=== PATIENT | female | born 1995 | race Caucasian/White ===

== ENCOUNTER 2016-11-27 00:36 | Observation (INO) ==
[2016-11-27] MEDS ORDERED: Rho Immune Globulin 1,500 UNIT SYRINGE IM ONE (03:25)
--- NOTE | 2016-12-04 08:26 | OB/GYN Progress Note ---
Date of Encounter: 11/27/16 Time of Encounter: 01:30 - Assessment and Plan (1) 22 weeks gestation of Status: Acute care with Dr. Guillen, follow-up with Dr. Guillen for further evaluation, her labor warning signs given (2) Rh negative status during in second trimester Status: Acute Positive Kleihauer-Betke (3) Encounter for prophylactic administration of RhoGAM Status: Acute Need for RhoGAM determined and RhoGAM given Subjective - Subjective Principal diagnosis: 22 wk IUP Interval history: pt at 22 wks EGA who fell twice, slipping on mud. + FM, pink d/c x 1. +FM, no cramping Antepartum ROS: movement normal, no loss of fluid, no contractions Objective - Exam FHR: auscultation normal FHR comments: no contraactions Abdomen: Present: normal appearance (per RN), soft, gravid - Labs Labs: Abnormal lab results Volume Blood 50 mL FMH (0-0) H 11/27/16 01:41 - Allied health notes Allied health notes reviewed: nursing
== END 2016-11-27 04:10 | disposition home or self-care (01) ==
LOC: 1NENULAB
PROVIDERS: ADMIT Obstetrics & Gynecology; ATTEND Obstetrics & Gynecology

== ENCOUNTER 2017-03-21 17:45 | Observation (INO) ==
--- NOTE | 2017-03-21 18:18 | OB/GYN Progress Note ---
Date of Encounter: 03/21/17 Time of Encounter: 18:17 - Assessment and Plan (1) 38 weeks gestation of Status: Acute Pt receives appropriate care with Dr. Guillen However has missed last two scheduled outpatient visits F/u appointment scheduled with Dr. Guillen for 03/26/17 (2) induced hypertension Status: Acute BP's on admission: [139/78, 133/72] PIH labs - protein/creatinine ration 0.24. AST/ALT WNL and reassuring of normal liver function Nausea and throbbing sensation with headache, suggestive of migraine-type headache Pt educated to monitor for any progression in visual disturbances, other than those associated with headache Discussed with Dr. Vargas and LOLA Cunningham. Dr. Vargas reviewed labs. Per Octavio, pt safe for discharge home, with labor precautions, when to return to triage or call provider. Pt verbalizes understanding. Qualifiers: Trimester: third trimester Qualified Code(s): O13.3 - Gestational [ -induced] hypertension without significant proteinuria, third trimester (3) Non-stress test reactive on surveillance Status: Acute Baseline 135 bpm Moderate variability Heart tracing reassuring Subjective - Subjective Principal diagnosis: PIH Evaluatioin Interval history: Ms. Daigle is a 22 year old F at 38 weeks and 4 days who presents to labor and delivery from office for PIH evaluation. Patient had elevated BP of 150/92 in office.Patient denies leaking of fluid or vaginal bleeding. Pt feels that movement has not been as active as usual. This past week she has had a "throbbing" sensation behind eyes and intermittent, "achy" right upper quadrant abdominal pain. Additionally, reports new onset of headache localized in posterior neck side that began approximately one week ago and is accompanied with nightly emesis that resolves with rest. Pt has missed last two outpatient visits. Blood type: O Neg, Rubella: Immune, Hep. B: nonreactive, HIV: nonreactive/ T Pallidum Ab-/ GBS: Pending. Pt is HSV 1 IgG Positive. Antepartum ROS: new complaints, no loss of fluid, no vaginal bleeding, no contractions Objective - Vital Signs Vital Signs: Intake and Output 03/21/17 03/21/17 03/21/17 07:59 15:59 23:59 Other: Weight 147.1 kg Patient Weight 03/21/17 23:59 Weight 147.1 kg BP: 139/78 @ 1803 BP: 133/72 @1819 Temp: 97.8 HR: 88 - Exam FHR: auscultation normal, other (Baseline 135 bpm) FHR comments: baseline 135 Auscultation: bilateral: normal Abdomen: Present: soft (obese, distrubition of silverly plaques across skin and abdomen), gravid. Absent: rigidity, tenderness Cervical dilation: SVE deferred
[2017-03-21 18:46] LABS: Bilirubin,Urine Negative (Negative); Blood,Urine Negative (Negative); Clarity,Urine Cloudy (Clear); Color,Urine Yellow (Yellow); Glucose,Urine (UA) Normal (Normal); Ketones,Urine Negative (Negative); Leukocyte Esterase,Urine Negative (Negative); Nitrite,Urine Negative (Negative); PH,Urine 6.5 pH Units (5.0-8.0); Protein,Urine Trace mg/dL (Neg-Trace); Specific Gravity,Urine 1.013 (1.010-1.025); Urobilinogen,Urine Normal (Normal)
[2017-03-21 18:50] LABS: Basophils % 0.1 %; Eosinophils # 0.2 K/mcL (0.0-0.6); Eosinophils % 1.2 %; Hematocrit 34.6 % (35.3-44.9); Hemoglobin 10.7 g/dL (11.5-15.4); Immature Granulocytes % 1.1 % (0-4); Lymphocytes # 1.9 K/mcL (0.6-4.6); Lymphocytes % 13.6 %; Mean Corpuscular HGB Conc 30.9 g/dL (31.6-35.5); Mean Corpuscular Hemoglobin 23.2 pg (28.0-33.3); Mean Corpuscular Volume 75.1 fL (83.0-100.0); Mean Platelet Volume 11.9 fL (9.4-12.4); Monocytes # 1.1 K/mcL (0.0-1.3); Monocytes % 7.6 %; Neutrophils # 10.7 K/mcL (1.6-8.9); Platelet Count 238 K/mcL (140-400); Red Blood Count 4.61 M/mcL (3.82-4.97); Segmented Neutrophils % 76.4 %
[2017-03-21 18:52] LABS: Hyaline Casts,Urine None Seen per lpf (None-Few); RBC,Urine 0-3 per hpf (0-3); WBC,Urine 0-3 per hpf (0-3)
[2017-03-21 18:54] LABS: Protein/Creatinine Ratio,Urine 0.24 mg/mg (0-0.20)
[2017-03-21 18:59] LABS: Alanine Aminotransferase 9 Units/L (0-55); Aspartate Amino Transferase 15 Units/L (5-34); BUN/Creatinine Ratio 9 (6-26); Lactate Dehydrogenase 174 Units/L (159-327); Uric Acid 4.9 mg/dL (2.6-6.0); eGFR For African Americans > 60 (> 60); eGFR For Non-African Americans > 60 (> 60)
[2017-03-21 19:00] LABS: Squamous Epithelial Cell,Urine Few per lpf (None-Few)
[2017-03-21 19:00] LABS: Blood Urea Nitrogen 5 mg/dL (7-20)
[2017-03-21 19:01] LABS: Bacteria,Urine Few per hpf (None-Few)
== END 2017-03-21 19:25 | disposition home or self-care (01) ==
LOC: 1NENULAB → MERGE 17:45
PROVIDERS: ADMIT Obstetrics & Gynecology; ATTEND Obstetrics & Gynecology

== ENCOUNTER 2017-04-01 21:33 | Inpatient (IN) ==
--- NOTE | 2017-04-01 20:54 | OB/GYN History & Physical ---
Date of Encounter: 04/01/17 Time of Encounter: 20:50 Assessment and Plan (1) 40 weeks gestation of Current visit: Yes Status: Acute Possible Induction as per Dr. De Los Santos (2) Obesity, morbid (more than 100 lbs over ideal weight or BMI > 40) Current visit: Yes Status: Chronic History of Present Illness Chief complaint: Interested in Induction HPI: Ms. Davila is a 22 year old female, , 40.1 GA, presents to L&D with 6/10 back pain and interest in labor induction. Patient confirms movement, denies vaginal bleeding, loss of fluid, swelling, or abdominal pain. +diffuse headache that comes and goes, but no ongoing elevated blood pressures during . Past urinalysis negative for protein. Labs: Postive: GBS; HSV 1 Negative: HIV, Hep B/C, syphilis, chlamydia, gonorrhea Immune: VZV, Rubella Past Med Surg Social Fam HX - Past Medical History Medical history: no medical history Psychiatric history: anxiety, bipolar, depression - Past Surgical History Surgical History: cholecystectomy - Social History Smoking Status: Former smoker Smokeless Tobacco Status: No Alcohol use: none Drug use: none - Family History Mother Living Status: Still Living Hx Family Cardiac Disorders: No Hx Family Respiratory Disorders: No Hx Family Cancer: No Hx Family GI Disorders: No Hx Family Endocrine Disorder: No Hx Family Neuromuscular Disorders: No Hx Family Neurologic Disorders: No Hx Family HEENT Disorders: No Hx Family Autoimmune Disorders: No Obstetrical History - Pregnancies : 2 Medications and Allergies Xanax 1 mg PO TID 09/01/15 [History] BuPROPion [Wellbutrin] 1 tab PO DAILY 03/21/17 [History] Vistaril 50 mg PO DAILY 03/21/17 [History] Allergies amphetamine [From Adderall] Allergy (Verified 03/14/16 01:21) Rash dextroamphetamine [From Adderall] Allergy (Verified 03/14/16 01:21) Rash codeine Adverse Reaction (Verified 03/14/16 01:21) Nausea tramadol [From Ultram] Adverse Reaction (Verified 03/14/16 01:21) Nausea Review of System OB - Genitourinary Genitourinary: amenorrhea - Menstruation Menstruation: amenorrhea Exam - Vital Signs Vital signs: Initial Vital Signs Temp Pulse Resp BP 97.7 F 99 15 135/74 04/01/17 20:01 04/01/17 20:01 04/01/17 20:01 04/01/17 20:01 - Constitutional Constitutional: well developed, well nourished, no acute distress, obese - HEENT HEENT: Normocephaly, Mucus Membranes Moist - Neck Neck exam: full ROM - Lungs Respiratory exam: CTAB - Cardiovascular Cardiovascular exam: +S1, +S2 - Cervix Dilation: 1 Station: -2 Results All other labs normal. - VTE Reasons for not Prescribing Prophylaxis: Treatment not Indicated - Low risk for VTE
[~2017-04-01 21:33] MED LIST: Famotidine 20 MG/2 ML VIAL IVP PRN; Metoclopramide 10 MG/2 ML VIAL IVP PRN; Naloxone 0.4 MG/ML INJ IVP PRN
[2017-04-01] MEDS ORDERED: miSOPROStol 100 MCG TABLET PO STA (21:35)
[2017-04-01 21:46] LABS: Basophils % 0.2 %; Eosinophils # 0.1 K/mcL (0.0-0.6); Eosinophils % 0.8 %; Hematocrit 37.1 % (35.3-44.9); Hemoglobin 11.2 g/dL (11.5-15.4); Immature Granulocytes % 1.1 % (0-4); Lymphocytes # 1.9 K/mcL (0.6-4.6); Lymphocytes % 12.1 %; Mean Corpuscular HGB Conc 30.2 g/dL (31.6-35.5); Mean Platelet Volume 11.5 fL (9.4-12.4); Monocytes # 0.9 K/mcL (0.0-1.3); Monocytes % 5.8 %; Neutrophils # 12.3 K/mcL (1.6-8.9); Platelet Count 247 K/mcL (140-400); Red Blood Count 4.88 M/mcL (3.82-4.97); Red Cell Distribution Width 16.8 % (11.5-14.5)
[2017-04-01] MEDS ORDERED: Penicillin G Potassium 5,000,000 UNIT in D5% in Water (Mini-Bag+) 100 ML IVPB ONE (22:54)
[2017-04-01] MEDS: Ringers Solution, Lactated 1,000 ML IVC SCH (23:10)
[2017-04-02] MEDS: Ondansetron 4 MG/2 ML VIAL IVP PRN ×2 (00:38→17:52)
--- NOTE | 2017-04-02 02:18 | OB Labor Progress Note ---
Date of Encounter: 04/02/17 Time of Encounter: 02:16 Labor Progress Note - Subjective Subjective: Patient lying comfortably in bed, accompanied by fiance, sister, and friend. Pt reports no active contractions currently. - Cervix Cervix: 1cm, -2 station - Heart Tones Heart Tones: Reassuring heart monitoring. - Interventions Interventions: 2nd dose cytotec to be administered. - Plan Plan: Continue monitoring for progression of labor.
[2017-04-02] MEDS ORDERED: miSOPROStol 100 MCG TABLET PO STA (02:21)
[2017-04-02] MEDS: Penicillin G Potassium 2,500,000 UNIT in D5% in Water 100 ML IVPB SCH ×4 (02:47→16:16)
[2017-04-02] MEDS ORDERED: miSOPROStol 25 MCG TABLET VG SCH (08:00)
--- NOTE | 2017-04-02 08:41 | Anesthesia Evaluation PreOp ---
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: Denies Any Significant HX Other Medical History: Denies Any Significant HX Anesthesia History: No Prior Anesthetic Complications (Lap grazyna without anesthetic complication), Past Anesthesia : Yes Alcohol Use: none Drug use: none Medications and Allergies Xanax 1 mg PO TID 09/01/15 [History] BuPROPion [Wellbutrin] 1 tab PO DAILY 03/21/17 [History] Vistaril 50 mg PO DAILY 03/21/17 [History] Allergies amphetamine [From Adderall] Allergy (Verified 03/14/16 01:21) Rash dextroamphetamine [From Adderall] Allergy (Verified 03/14/16 01:21) Rash codeine Adverse Reaction (Verified 03/14/16 01:21) Nausea tramadol [From Ultram] Adverse Reaction (Verified 03/14/16 01:21) Nausea - Meds/Allergy Pre-op Review Medications Reviewed: Yes Allergies Reviewed: Yes Beta Blockers on Current Med List: No Anesthesia Results - Labs 04/01/17 21:15 Anesthesia Exam Vital Signs Temperature 97.7 F 04/01/17 20:01 Pulse Rate 99 04/01/17 20:01 Respiratory Rate 04/01/17 20:01 Blood Pressure 135/74 04/01/17 20:01 Temperature 97.7 F 04/01/17 20:01 Pulse Rate 99 04/01/17 20:01 Respiratory Rate 04/01/17 20:01 Blood Pressure 135/74 04/01/17 20:01 Height: 5'10" Weight: 147kg NPO (# of Hours): 2 Pain Scale: 0 Pain Scale Used: Numeric (1 - 10) - HEENT Pupil (Motor): Pupils equal Mallampati: II Teeth: Normal Oral Opening: Greater than 3 - DIESEL ENGINE INSPECTOR LOC: Oriented DIESEL ENGINE INSPECTOR Motor: Normal RUE, Normal LUE, Normal RLE, Normal LLE, Normal Face DIESEL ENGINE INSPECTOR Sensory: Normal: RUE, LUE, RLE, LLE, Face - Cardiac Rhythm: Regular Murmur: None JVD: No Carotid Bruit: No - Pulmonary Breath Sounds: bilateral Clear Respiratory Effort: Symmetrical Anesthesia Assess/Plan ASA Score: 3 Modified Fenton Scale for Level of Consciousness: Cooperative, oriented, and tranquil Anesthetic Plan: Regional Autologous Blood: No Monitoring Plan: Standard Monitors Recovery Plan: PACU
--- NOTE | 2017-04-02 08:44 | OB Labor Progress Note ---
Date of Encounter: 04/02/17 Time of Encounter: 08:45 Labor Progress Note - Subjective Subjective: Patient is not really feeling contractions has received 2 doses of Cytotec by mouth. Patient still not get the most favorable cervix since induction inserted been initiated we will proceed on. We did have a long discussion about if we cannot get the baby out now vaginally she is looking at a section and she is okay with that. Recommended trying a Arreola catheter along with vaginal Cytotec. - Cervix Cervix: /-3 arreola catheter placed without difficulty - Heart Tones Heart Tones: heart tones 140s reactive - [place]: No contractions noted occasional irritability - Plan Plan: We will try Arreola catheter with vaginal Cytotec once Arreola is out we will discuss augmentation with Pitocin.
[2017-04-02] MEDS ORDERED: Oxytocin 20 units/ LR 1000 mL 20 UNIT/1,000 ML BAG IVC SCH ×3 (13:15→22:44)
--- NOTE | 2017-04-02 14:39 | OB Labor Progress Note ---
Date of Encounter: 04/02/17 Time of Encounter: 14:36 Labor Progress Note - Subjective Subjective: Patient resting in bed, discussed POC with patient. Patient denies any questions or concerns. - Heart Tones Heart Tones: 115 bpm moderate variability +15x15 accels no decels noted. CAt. 1 tracing. - [place]: 4-5 min apart - Interventions Interventions: discussed POC with patient. - Plan Plan: Will start Pitocin to achieve an effective labor pattern.
[2017-04-02] MEDS ORDERED: *HR* FentaNYL (PF) 100 MCG/2 ML VIAL ONE (15:05)
[2017-04-02] MEDS ORDERED: Bupivacaine-MPF 0.25% 10 ML VIAL ONE (15:06)
[2017-04-02] MEDS ORDERED: Epidural Premix (fent/bupiv) 110 ML EP ONE (15:06)
[2017-04-02] MEDS ORDERED: Ondansetron 4 MG/2 ML VIAL IVP PRN ×3 (15:47→23:42)
[2017-04-02] MEDS ORDERED: Bupivacaine-MPF 0.25% 10 ML VIAL EP ONE (15:47)
[2017-04-02] MEDS ORDERED: *HR* FentaNYL (PF) 100 MCG/2 ML VIAL EP ONE (15:47)
[2017-04-02] MEDS ORDERED: Naloxone 0.4 MG/ML INJ IVP PRN ×3 (15:47→23:42)
[2017-04-02] MEDS ORDERED: EPHEDrine 50 MG/ML VIAL IVP PRN (15:47)
--- NOTE | 2017-04-02 15:51 | Anesthesia Procedures ---
Date of Encounter: 04/02/17 Time of Encounter: 15:08 Procedures: Anesthesia - Epidural/Spinal Patient ID/Chart reviewed: Yes Patient examined: Yes OB Eval: Gestational age: 40.2 OB Eval: : 2 OB Eval: Hx Para: 0 OB Eval: Dilated at (cm): 4 OB Eval: Contractions: Non-stressed pattern Consent Obtained: Yes Supplemental Oxygen: None/Room Air Site Prep: Aseptic Technique, Sterile prep and drape, Povidone-Iodine 1% Patient position: upright Local Anesthetic: Lidocaine 1% Amount of Local Anesthetic used: 3 Touhy Needle Gauge: 18 Touhy Needle Depth (cm): 8 Catheter Depth at Skin (cm): 15 Test Dose (1.5% Lido + Epi): Volume given (mls): 3 Test Dose Result: Negative Loading Dose: Fentanyl (mcg): 100 Loading Dose Administered: Thru Catheter Infusion Med: 0.125% Bupivacaine w/ 2 mcg/ml Fentanyl Infusion Rate (mls/hr): [address]: Tegaderm, Tape Interspace Used: L4-L5 Loss of Resistance (HERIBERTO): Yes Blood: Yes (1st pass heme, 2nd pass none) CSF: No Paresthesia: No Procedure: KIRBY placed 1st pass heme, 2nd pass none and with negative test dose. No immediate complication noted. Vitals + FHT's: 1508 BP 138/84 P 75 R 18 1545 BP 138/64 R 16 P 94 FHT 120s
[2017-04-02] MEDS ORDERED: Epidural Premix (fent/bupiv) 110 ML EP SCH (16:00)
--- NOTE | 2017-04-02 16:44 | OB Labor Progress Note ---
Date of Encounter: 04/02/17 Time of Encounter: 16:42 Labor Progress Note - Subjective Subjective: Patient resting comfortably with epidural in place. Discussed POC with patient patient denies any questions or concerns. - Cervix Cervix: 4/60/-2 - Heart Tones Heart Tones: 125 bpm moderate variability +15x15 accels no decels noted. - [place]: 2-3 min apart - Interventions Interventions: SVE, AROM moderate amount of light meconium stained fluid. IUPC and FSE placed without difficulty. Patient tolerated well. - Plan Plan: Continue labor management
--- NOTE | 2017-04-02 19:32 | OB Labor Progress Note ---
Date of Encounter: 04/02/17 Time of Encounter: 19:30 Labor Progress Note - Subjective Subjective: Patient resting comfortably with epidural in place. Patient denies any pain. - Cervix Cervix: 4.5/80/-2 - Heart Tones Heart Tones: 130 bpm moderate variability +15x15 accels no decels noted. - [place]: 2-3 min apart - Interventions Interventions: SVE, patient repositioned - Plan Plan: Continue labor management. Dr. Andrew notified of patient's progress.
[2017-04-02] MEDS: Ringers Solution, Lactated 1,000 ML IVC SCH (19:57)
[2017-04-02] MEDS ORDERED: CeFAZolin Pre 3,000 MG/100 ML 3,000 MG/100 ML BAG IVPB ONE (20:27)
[2017-04-02] MEDS ORDERED: EPHEDrine 50 MG/ML VIAL ONE (20:41)
[2017-04-02] MEDS ORDERED: *HR* Morphine Sulfate/PF 5 MG/10 ML AMPUL ONE (20:42)
[2017-04-02] MEDS ORDERED: Azithromycin 500 MG in D5% in Water 250 ML IVPB SCH (21:00)
[2017-04-02] MEDS ORDERED: *HR* Promethazine 25 MG/ML VIAL IVP PRN (21:05)
[2017-04-02] MEDS ORDERED: *HR* HYDROmorphone (PF) 1 MG/ML SYRINGE IVP PRN (21:05)
[2017-04-02] MEDS ORDERED: Ondansetron 4 MG/2 ML VIAL IVP ONE (21:05)
[2017-04-02] MEDS ORDERED: Ringers Solution, Lactated 1,000 ML IVC SCH (21:15)
--- NOTE | 2017-04-02 21:22 | Operative Note ---
Date of procedure: 04/02/17 Pre-op diagnosis: Intrauterine at 39-1/7 weeks, category 3 strip bradycardia Post-op diagnosis: same Procedure: Primary low transverse section Complications: None Anesthesia: epidural Surgeon: Antonio Andrew
--- NOTE | 2017-04-02 21:26 | OB/GYN Procedure Note ---
Section - Date of procedure: 04/02/17 Preop diagnosis: other (Intrauterine at 39-1/7 weeks, category 3 tracing bradycardia) Post-op diagnosis: same Procedure: primary low transverse Surgeon: Antonio Andrew Estimated blood loss (cc): 300 Anesthesiologist: Rajendra Paulino Advertising Editor: Poli Sherwood Anesthesia Type: Epidural section complications: none Disposition: L&D Recovery Room Specimens: Placenta, Cord blood, Cord gasses - Infant (s) Infant A Delivery Date: 04/02/17 Infant Delivery Time: 20:37 Presentation: vertex Position: ARSALAN Route of delivery: other ( section) Gender: Female Viability: Viable Pounds: 5 Ounces: 11 Gram Weight: 2.575 kg at 1 minute: 7 at 5 minutes: 9 Shoulder Dystocia: not encountered Specimens collected: cord blood Placenta: spontaneous Cord: 3 umbilical vessels - Narrative Narrative: Patient is a 22-year-old 1 para 0 at 39 and one sevenths weeks who presented to labor and delivery complaining contractions. Because she was over 39 weeks and we decided to go ahead and keep her and start induction. Patient received 2 doses of Cytotec by mouth but really did not make any cervical change the next morning patient received Sheffield catheter and vaginal Cytotec. Catheter did fall out when she was 4 cm and we were able to start Pitocin and get her an epidural. She was artificially ruptured with light meconium noted. Patient was progressing appropriately and had a bradycardic episode down into the 60s and was not returning to baseline because the patient was still only 5 cm an emergency was called. By the time that the patient back to the operating room heart tones back in the 30s and were able to use epidural to continue on with the section. Procedure: Patient was taken to the operating room where epidural anesthesia was found to be adequate. She was placed in the dorsal supine position with leftward tilt prepped and draped in usual fashion. Timeout was obtained. A Pfannenstiel incision was made carried down to the underlying tissue to the fascia was identified. Fascia was nicked in midline extended laterally with the Baird scissors. The superior and inferior edges of the fascia grasped tented up and dissected off the rectus muscles. Rectus muscles were in midline parietal peritoneum was identified tented up and entered sharply. This was extended superiorly and inferiorly with Metzenbaum scissors. Bladder blade was inserted and vesicouterine peritoneum was identified tented up and entered sharply. This was extended laterally and bladder flap was created digitally. The lower uterine segment was incised with a scalpel and extended laterally with digital manipulation. Membranes were ruptured meconium was identified infant's head was then brought out from the pelvis through the incision there was no nuchal cord. The infant was fully delivered cord discomfort and cut and was handed off to waiting pediatric team. An curtis self-retaining retractor was placed in the abdomen and the placenta was delivered spontaneously. Cord blood and cord gases were previously obtained. The uterus was then cleaned of all clots and debris and the lower uterine segment was closed using 0 Vicryl in a running locking stitch by a 2 layer closure. Good hemostasis was noted ovaries noted be normal gutters were cleaned of all clots and debris and copiously irrigated. The fascia was then closed using a #1 stratafix in a running stitch the subcutaneous tissue was closed using an 0 chromic in a running stitch and the skin was closed using a 4- 0 Vicryl in subcutaneous manner. All needles and sponge counts were correct 3 she did receive preoperative antibiotics. Patient will be continued on Keflex 500 mg daily for 7 days and Zithromax 500 mg daily for 7 days
[2017-04-02] MEDS ORDERED: 0.9 % Sodium Chloride 1,000 ML IVC SCH (22:44)
[2017-04-02] MEDS ORDERED: Sennosides 8.6 MG TABLET PO PRN (22:44)
[2017-04-02] MEDS ORDERED: Metoclopramide 10 MG/2 ML VIAL IVP PRN (22:44)
[2017-04-02] MEDS ORDERED: Simethicone 80 MG TAB.CHEW PO PRN (22:44)
[2017-04-02] MEDS ORDERED: *HR* Morphine 2 MG/ML SYRINGE IVP PRN (23:42)
[2017-04-02] MEDS ORDERED: *HR* Morphine 2 MG/ML SYRINGE ONE (23:53)
--- NOTE | 2017-04-02 23:56 | Anesthesia Evaluation Post Op ---
Date of Encounter: 04/02/17 Time of Encounter: 23:54 - Vital Signs Vital Signs: Vital Signs Temperature 97.7 F 04/01/17 20:01 Pulse Rate 99 04/01/17 20:01 Respiratory Rate 15 04/01/17 20:01 Blood Pressure 135/74 04/01/17 20:01 Temperature 97.6 F 04/02/17 23:30 Pulse Rate 86 04/02/17 23:30 Respiratory Rate 18 04/02/17 23:30 Blood Pressure 118/78 04/02/17 23:30 O2 Sat by Pulse Oximetry 98 04/02/17 23:30 - Lungs Lungs: Clear Ascult./Percussion - Airway Airway: Non-obstructed - Cardiovascular Regular Rate - Mental Status Mental Status: Alert & Oriented, Answers Appropriately - Pain Pain Scale: 0 - Nausea Vomiting Nausea Vomiting: Not Present - Hydration Hydration: Tolerates oral liquids, Sheffield catheter - Discharge PostOp Status: Transfer Patient to floor
[2017-04-03 06:25] LABS: Basophils % 0.1 %; Eosinophils % 0.2 %; Hematocrit 34.1 % (35.3-44.9); Hemoglobin 10.2 g/dL (11.5-15.4); Immature Granulocytes % 0.8 % (0-4); Lymphocytes # 1.7 K/mcL (0.6-4.6); Lymphocytes % 12.3 %; Mean Corpuscular HGB Conc 29.9 g/dL (31.6-35.5); Mean Corpuscular Hemoglobin 22.9 pg (28.0-33.3); Mean Corpuscular Volume 76.5 fL (83.0-100.0); Mean Platelet Volume 12.2 fL (9.4-12.4); Monocytes % 7.2 %; Neutrophils # 11.2 K/mcL (1.6-8.9); Platelet Count 233 K/mcL (140-400); Red Blood Count 4.46 M/mcL (3.82-4.97); Red Cell Distribution Width 16.8 % (11.5-14.5); Segmented Neutrophils % 79.4 %
[2017-04-03] MEDS: Prenatal Vit/FA 1 EACH TABLET PO SCH (07:59)
[2017-04-03] MEDS: Azithromycin 250 MG TABLET PO SCH (07:59)
[2017-04-03] MEDS: cephALEXin 500 MG CAPSULE PO SCH (08:00)
[2017-04-03] MEDS: *HR* OxyCODONE/APAP 5/325 TABLET PO PRN ×3 (08:00→20:43)
[2017-04-03] MEDS ORDERED: Metoclopramide 10 MG/2 ML VIAL IVP ONE (09:25)
--- NOTE | 2017-04-03 09:30 | OB/GYN Progress Note ---
Date of Encounter: 04/03/17 Time of Encounter: 09:27 - Assessment and Plan (1) delivery delivered Current Visit: Yes Status: Acute Pt meeting POD#1 milestones. Will treat nausea with reglan and PRN phenergan. Hold diet with clear liquids until nausea resolved. Plan for arreola out this am and await spontaneous void. Pt to ambulate in hallway this afternoon. (2) Mother currently breast-feeding Current Visit: Yes Status: Acute (3) Obesity, morbid (more than 100 lbs over ideal weight or BMI > 40) Current Visit: Yes Status: Chronic (4) induced hypertension Current Visit: No Status: Acute BP stable this am Qualifiers: Trimester: third trimester Qualified Code(s): O13.3 - Gestational [ -induced] hypertension without significant proteinuria, third trimester (5) Rh negative status during in second trimester Current Visit: No Status: Acute Subjective - Subjective Interval history: Pt reports feeling nauseated this am. She states the zofran is not helping. No other complaints. Pain well controlled. Arreola in place. Pt has not yet been OOB. Patient reports: pain well controlled, nauseated, no appetite normal Objective - Vital Signs Latest vital signs: Vital Signs Temp Pulse Resp BP Pulse Ox 04/03/17 07:40 97.7 F 72 16 104/66 96 04/03/17 04:00 97.8 F 73 18 124/53 96 04/03/17 03:30 97.8 F 71 16 110/70 97 04/03/17 01:30 97.8 F 68 18 125/78 95 04/03/17 00:20 97.7 F 79 20 132/76 96 04/02/17 23:30 97.6 F 86 18 118/78 98 04/02/17 23:00 97.8 F 92 14 138/82 98 04/02/17 22:30 97.9 F 92 16 120/74 96 Intake and Output 04/02/17 04/03/17 04/03/17 23:59 07:59 15:59 Intake Total 100 / 100 400 / 400 Output Total 800 / 800 Balance 100 / 100 -400 / -400 Intake: IV Fluids 100 / 100 Pfizerpen 2,500,000 UNIT 100 / 100 In Dextrose 5% 100 ML @ 200 mls/hr IVPB Q4HR [facility] Rx#:[id number] Oral 400 / 400 Output: Emesis 200 / 200 Catheter 600 / 600 - Exam Lungs: bilateral: normal Chest: Normal S1, Normal S2 Extremities: Present: normal (SCD's in place) Abdomen: Present: soft, gravid Incision: Present: dressed (MILLA dry and intact) Uterus: Present: firm - Labs Labs: Laboratory Results - last 24 hr 04/03/17 05:52 WBC 14.1 H RBC 4.46 Hgb 10.2 L Hct 34.1 L MCV 76.5 L MCH 22.9 L MCHC 29.9 L RDW 16.8 H Plt Count 233 MPV 12.2 Immature Gran % 0.8 Seg Neutrophils % 79.4 Lymphocytes % 12.3 Monocytes % 7.2 Eosinophils % 0.2 Basophils % 0.1 Neutrophils # 11.2 H Lymphocytes # 1.7 Monocytes # 1.0 Eosinophils # 0.0 Basophils # 0.0
--- NOTE | 2017-04-03 13:53 | Discharge Summary ---
Date of Encounter: 04/03/17 Time of Encounter: 13:49 - Discharge Diagnosis (1) Obesity, morbid (more than 100 lbs over ideal weight or BMI > 40) Status: Chronic (2) delivery delivered Priority: Primary Status: Acute Comments: Meeting all postop milestones (3) Mother currently breast-feeding Priority: Secondary Status: Acute (4) induced hypertension Priority: Secondary Status: Acute Comments: BP's well controlled Qualifiers: Trimester: third trimester Qualified Code(s): O13.3 - Gestational [ -induced] hypertension without significant proteinuria, third trimester - Discharge Medications Home Medications: Xanax 1 mg PO TID 09/01/15 [History] BuPROPion [Wellbutrin] 1 tab PO DAILY 03/21/17 [History] Vistaril 50 mg PO DAILY 03/21/17 [History] Allergies/Adverse Reactions: Allergies amphetamine [From Adderall] Allergy (Verified 03/14/16 01:21) Rash dextroamphetamine [From Adderall] Allergy (Verified 03/14/16 01:21) Rash codeine Adverse Reaction (Verified 03/14/16 01:21) Nausea tramadol [From Ultram] Adverse Reaction (Verified 03/14/16 01:21) Nausea Data Procedures and tests throughout hospitalization: Laboratory Tests 04/01/17 04/02/17 04/03/17 21:15 22:12 05:52 WBC 15.4 H 14.1 H RBC 4.88 4.46 Hgb 11.2 L 10.2 L Hct 37.1 34.1 L MCV 76.0 L 76.5 L MCH 23.0 L 22.9 L MCHC 30.2 L 29.9 L RDW 16.8 H 16.8 H Plt Count 247 233 MPV 11.5 12.2 Immature Gran % 1.1 0.8 Seg Neutrophils % 80.0 79.4 Lymphocytes % 12.1 12.3 Monocytes % 5.8 7.2 Eosinophils % 0.8 0.2 Basophils % 0.2 0.1 Neutrophils # 12.3 H 11.2 H Lymphocytes # 1.9 1.7 Monocytes # 0.9 1.0 Eosinophils # 0.1 0.0 Basophils # 0.0 0.0 Screen NEGATIVE Baby's Blood Type O RH POSITIVE Mother's Blood Type O RH NEGATIVE Rhogam Indicated YES Rhogam Req for Mother 1 Labs on day of discharge: Labs from last 24 hours 04/03/17 04/02/17 05:52 22:12 WBC 14.1 H RBC 4.46 Hgb 10.2 L Hct 34.1 L MCV 76.5 L MCH 22.9 L MCHC 29.9 L RDW 16.8 H Plt Count 233 MPV 12.2 Immature Gran % 0.8 Seg Neutrophils % 79.4 Lymphocytes % 12.3 Monocytes % 7.2 Eosinophils % 0.2 Basophils % 0.1 Neutrophils # 11.2 H Lymphocytes # 1.7 Monocytes # 1.0 Eosinophils # 0.0 Basophils # 0.0 Screen NEGATIVE Baby's Blood Type O RH POSITIVE Mother's Blood Type O RH NEGATIVE Rhogam Indicated YES Rhogam Req for Mother 1 Date of admission: 04/01/17 21:33 Primary care physician: PCP NONE - Patient Status Disposition: Home, Self-Care Condition: Good Overall status at discharge: patient is progressing back to baseline - Discharge Instructions Follow Up With: NONE,PCP [Primary Care Provider] - - Diet and Activity Activity: increase activity as tolerated Diet: regular diet Hospital Course Reason for admission: active labor Delivery: section Episiotomy: none Laceration: none Other procedures: none complications: none Discharge diagnosis: IUP at term delivered [place] baby: female Hospital course: - Date of procedure: 04/02/17 Preop diagnosis: other (Intrauterine at 39-1/7 weeks, category 3 tracing bradycardia) Post-op diagnosis: same Procedure: primary low transverse Surgeon: Antonio Andrew Estimated blood loss (cc): 300 Anesthesiologist: Rajendra Paulino Tooth Inspector: Poli Sherwood Anesthesia Type: Epidural section complications: none Disposition: L&D Recovery Room Specimens: Placenta, Cord blood, Cord gasses - Infant (s) Infant A Delivery Date: 04/02/17 Delivery Time: 20:37 Presentation: vertex Position: ARSALAN Route of delivery: other ( section) Gender: Female Viability: Viable Pounds: 5 Ounces: 11 Gram Weight: 2.575 kg at 1 minute: 7 at 5 minutes: 9 Shoulder Dystocia: not encountered Specimens collected: cord blood Placenta: spontaneous Cord: 3 umbilical vessels Time Attestation: Total time spent providing and/or coordinating discharge services: - VTE Reasons for not Prescribing Prophylaxis: Treatment not Indicated - Low risk for VTE Documentation of Mechanical Device: Intermittent pneumatic compression device Exam - Constitutional Vitals: Temp Pulse Resp BP Pulse Ox 98 F 71 16 120/77 99 04/03/17 11:32 04/03/17 11:32 04/03/17 11:32 04/03/17 11:32 04/03/17 11:32
[2017-04-03] MEDS: Ibuprofen 600 MG TABLET PO PRN ×2 (15:08→23:37)
[2017-04-03] MEDS ORDERED: Rho Immune Globulin 1,500 UNIT SYRINGE IM ONE (16:30)
[2017-04-04] MEDS: *HR* OxyCODONE/APAP 5/325 TABLET PO PRN ×5 (02:48→22:49)
[2017-04-04] MEDS: Ibuprofen 600 MG TABLET PO PRN ×3 (06:49→22:48)
[2017-04-04] MEDS: cephALEXin 500 MG CAPSULE PO SCH (07:44)
[2017-04-04] MEDS: Prenatal Vit/FA 1 EACH TABLET PO SCH (07:44)
[2017-04-04] MEDS: Azithromycin 250 MG TABLET PO SCH (07:45)
--- NOTE | 2017-04-04 08:51 | OB/GYN Progress Note ---
Date of Encounter: 04/04/17 Time of Encounter: 08:42 - Assessment and Plan (1) Anemia, Current Visit: Yes Status: Acute Plan for iron PP (2) delivery delivered Current Visit: Yes Status: Acute Pt meeting all milestones, tolerating regular diet, pain managed on PO pain medication. Pt may DC today if desires. (3) Obesity, morbid (more than 100 lbs over ideal weight or BMI > 40) Current Visit: Yes Status: Chronic (4) Rh negative status during in second trimester Current Visit: No Status: Acute Subjective - Subjective Patient reports: appetite normal, voiding normally, pain well controlled, ambulating normally : doing well Objective - Vital Signs Latest vital signs: Vital Signs Temp Pulse Resp BP Pulse Ox 04/03/17 19:28 97.8 F 80 16 129/84 100 04/03/17 16:25 98.7 F 78 16 125/74 96 04/03/17 11:32 98 F 71 16 120/77 99 Intake and Output 04/03/17 04/04/17 04/04/17 23:59 07:59 15:59 Intake Total 1200 / 1200 500 / 500 Output Total 350 / 350 600 / 600 Balance 850 / 850 -100 / -100 Intake: IV Fluids 600 / 600 Pitocin 20 unit In 1,000 600 / 600 ml @ 125 mls/hr IVC .Q8H ALVAREZ Rx#:[id number] Oral 600 / 600 500 / 500 Output: Urine 350 / 350 600 / 600 Other: Meal Dinner Percent of Meal Consumed 100% # Voids 1 - Exam Lungs: bilateral: normal Chest: Normal S1, Normal S2 Extremities: Present: normal Abdomen: Present: normal appearance Incision: Present: dressed Uterus: Present: normal - Labs Labs: Laboratory Results - last 24 hr 04/02/17 22:12 Screen NEGATIVE Baby's Blood Type O RH POSITIVE Mother's Blood Type O RH NEGATIVE Rhogam Indicated YES Rhogam Req for Mother 1
[2017-04-04] MEDS ORDERED: Lanolin 7 G OINT...G. TP PRN (11:50)
[2017-04-05] MEDS: *HR* OxyCODONE/APAP 5/325 TABLET PO PRN ×3 (04:18→15:47)
[2017-04-05] MEDS: Prenatal Vit/FA 1 EACH TABLET PO SCH (07:51)
[2017-04-05] MEDS: cephALEXin 500 MG CAPSULE PO SCH (07:51)
[2017-04-05] MEDS: Azithromycin 250 MG TABLET PO SCH (07:51)
[2017-04-05] MEDS: Ibuprofen 600 MG TABLET PO PRN ×2 (07:55→15:48)
[2017-04-05 08:23] VITALS: BP 136/88
--- NOTE | 2017-04-05 08:32 | Discharge Summary ---
Date of Encounter: 04/05/17 Time of Encounter: 08:26 - Discharge Diagnosis (1) Status post primary low transverse section Priority: Primary Status: Acute Comments: Continue routine and postop care discharge home today follow up with Dr. Andrew in 2 weeks for incision check follow up with Dr. Guillen in 4-6 weeks - Discharge Medications Prescriptions: OxyCODONE/APAP 5/325 [Percocet 5/325 MG] 1 each PO Q4HR PRN #30 tab PRN Reason: Moderate pain 4-6 Ibuprofen [Motrin] 600 mg PO Q6HR PRN #60 tab PRN Reason: Cramping Azithromycin [Zithromax] 500 mg PO DAILY #8 tab cephALEXin [Keflex] 500 mg PO DAILY #4 Docusate [Colace] 100 mg PO BID #60 Home Medications: Xanax 1 mg PO TID 09/01/15 [History] BuPROPion [Wellbutrin] 1 tab PO DAILY 03/21/17 [History] Azithromycin [Zithromax] 500 mg PO DAILY #8 tab 04/05/17 [Rx] Docusate [Colace] 100 mg PO BID #60 04/05/17 [Rx] Ibuprofen [Motrin] 600 mg PO Q6HR PRN #60 tab 04/05/17 [Rx] Lanolin [Lansinoh] 1 appl TP TID PRN 04/05/17 [Rx] Mupirocin [Bactroban Oint] 1 appl TP BID 04/05/17 [Rx] OxyCODONE/APAP 5/325 [Percocet 5/325 MG] 1 each PO Q4HR PRN #30 tab 04/05/17 [Rx ] Vit/FA 1 each PO DAILY tab 04/05/17 [Rx] cephALEXin [Keflex] 500 mg PO DAILY #4 04/05/17 [Rx] Allergies/Adverse Reactions: Allergies amphetamine [From Adderall] Allergy (Verified 03/14/16 01:21) Rash dextroamphetamine [From Adderall] Allergy (Verified 03/14/16 01:21) Rash codeine Adverse Reaction (Verified 03/14/16 01:21) Nausea tramadol [From Ultram] Adverse Reaction (Verified 03/14/16 01:21) Nausea Data Procedures and tests throughout hospitalization: Laboratory Tests 04/01/17 04/02/1717 21:15 22:12 05:52 WBC 15.4 H 14.1 H RBC 4.88 4.46 Hgb 11.2 L 10.2 L Hct 37.1 34.1 L MCV 76.0 L 76.5 L MCH 23.0 L 22.9 L MCHC 30.2 L 29.9 L RDW 16.8 H 16.8 H Plt Count 247 233 MPV 11.5 12.2 Immature Gran % 1.1 0.8 Seg Neutrophils % 80.0 79.4 Lymphocytes % 12.1 12.3 Monocytes % 5.8 7.2 Eosinophils % 0.8 0.2 Basophils % 0.2 0.1 Neutrophils # 12.3 H 11.2 H Lymphocytes # 1.9 1.7 Monocytes # 0.9 1.0 Eosinophils # 0.1 0.0 Basophils # 0.0 0.0 Screen NEGATIVE Baby's Blood Type O RH POSITIVE Mother's Blood Type O RH NEGATIVE Rhogam Indicated YES Rhogam Req for Mother 1 Date of admission: 04/01/17 21:33 Primary care physician: PCP NONE Discharging clinician: Ramila Khoury Anticipated date of discharge: 04/05/17 - Patient Status Disposition: Home, Self-Care Condition: Good - Discharge Instructions Follow Up With: NONE,PCP [Primary Care Provider] - Antonio Andrew DO [Partnered Physician] - - Diet and Activity Activity: increase activity as tolerated Diet: regular diet Hospital Course Procedures: [facility] report reviewed prior to discharge Reason for admission: induction of labor Delivery: section Laceration: none Other procedures: none complications: none Discharge diagnosis: IUP at term delivered baby: female (bottle feeding) Time Attestation: Total time spent providing and/or coordinating discharge services: Time Spent: Less than 30 minutes - VTE Reasons for not Prescribing Prophylaxis: Treatment not Indicated - Low risk for VTE Documentation of Mechanical Device: Intermittent pneumatic compression device Exam - Constitutional Vitals: Temp Pulse Resp BP Pulse Ox 97.7 F 87 18 136/88 100 04/05/17 08:22 04/05/17 08:22 04/05/17 08:22 04/05/17 08:22 04/05/17 08:22 General appearance IM: A&O X 3, morbidly obese, pleasant, answers questions appropriately - Respiratory Respiratory exam: Present: CTAB - Cardiovascular Cardiovascular exam IM: Present: RRR, +S1, +S2 - GI/Abdominal Incision: normal, dry, dressed (Imer dressing ) - Uterine Tone: Firm Uterus Position: 2 Fingers Below Umbilicus, Midline - Extremities Exam Extremities exam IM: Present: full ROM, normal capillary refill, normal inspection - Neurological Exam Neurological exam: alert, oriented X3, reflexes normal
== END 2017-04-05 17:35 | disposition home or self-care (01) | DRG 540 ==
LOC: 1NENULAB → 1NENUOBS 04-02 22:25
PROVIDERS: ADMIT Obstetrics & Gynecology; ATTEND Obstetrics & Gynecology